=== PATIENT | female | born 1995 | race Two or more races ===

== ENCOUNTER 2024-08-02 09:09 | Outpatient (RCR) | payer MEDICAID, SELFPAY ==
--- NOTE | 2024-07-12 09:23 | XR_ITS ---
Examination: Biophysical profile, ultrasound Date and time of exam: July 12, 2024 0936 hours INDICATIONS: Maternal obesity Technique: Multiple transabdominal sonographic images of the pelvis abdomen obtained. Attention is directed to the breathing movement, gross body movement, amniotic fluid volume and tone. Findings: Amniotic fluid index 9.4 cm Total biophysical profile is 8 of 8. breathing movement is 2. Gross body movement is 2. tone is 2. Qualitative amniotic fluid volume is 2 Impression: Biophysical profile is 8 of 8.
[2024-07-12 10:16] VITALS: BP 124/81; PULSE 105; RESP 16; TEMP 36.8
--- NOTE | 2024-07-19 09:27 | XR_ITS ---
Examination: Biophysical profile, ultrasound Date and time of exam: July 19, 2024 0932 hrs. Indications: Maternal obesity Technique: Multiple transabdominal sonographic images of the pelvis abdomen obtained. Attention is directed to the breathing movement, gross body movement, amniotic fluid volume and tone. Findings: Amniotic fluid index 9.3 cm Total biophysical profile is 8 of 8. breathing movement is 2. Gross body movement is 2. tone is 2. Qualitative amniotic fluid volume is 2 Impression: Biophysical profile is 8 of 8.
[2024-07-19 10:08] VITALS: BP 111/76; PULSE 98; RESP 16; TEMP 36.7
--- NOTE | 2024-07-26 09:15 | XR_ITS ---
Examination: Biophysical profile, ultrasound Date and time of exam: July 26, 2024 0924 hours INDICATIONS: Maternal obesity Technique: Multiple transabdominal sonographic images of the pelvis abdomen obtained. Attention is directed to the breathing movement, gross body movement, amniotic fluid volume and tone. Findings: Amniotic fluid index 11.9 cm Total biophysical profile is 8 of 8. breathing movement is 2. Gross body movement is 2. tone is 2. Qualitative amniotic fluid volume is 2 Impression: Biophysical profile is 8 of 8.
[2024-07-26 10:06] VITALS: BP 111/64; PULSE 86; RESP 16; TEMP 36.8
--- NOTE | 2024-08-02 09:29 | XR_ITS ---
Examination: Biophysical profile, ultrasound Date and time of exam: August 02, 2024 1015 hours INDICATIONS: Maternal obesity Technique: Multiple transabdominal sonographic images of the pelvis abdomen obtained. Attention is directed to the breathing movement, gross body movement, amniotic fluid volume and tone. Findings: Amniotic fluid index 11.4 cm Total biophysical profile is 8 of 8. breathing movement is 2. Gross body movement is 2. tone is 2. Qualitative amniotic fluid volume is 2 Impression: Biophysical profile is 8 of 8.
[2024-08-02 10:48] VITALS: BP 138/92; PULSE 86; RESP 16; TEMP 36.7
== END 2024-08-02 23:59 | disposition home or self-care (01) ==
LOC: S4S1 09:09
PROVIDERS: PCP Family Medicine; Referring Provider Obstetrics & Gynecology; Visit Provider Obstetrics & Gynecology
DX: O99.213 Obesity complicating pregnancy, third trimester (principal); E66.9 Obesity, unspecified; Z3A.37 37 weeks gestation of pregnancy
CPT/HCPCS: 59025; 76819

== ENCOUNTER 2024-08-10 23:40 | Inpatient (IN) | payer MEDICAID, SELFPAY ==
[2024-08-10 23:52] VITALS: BP 134/82; RESP 100; RESP 18; TEMP 37.1
--- NOTE | 2024-08-10 23:55 | PD.LDHP ---
Documentation for date of: 08/10/24 OB Labor/Induct. HPI History of Present Illness : 4 Para: 2 History of Abortions: Spontaneous and Elective: 1 History of sections: Yes TRACIE: 08/21/24 Gestational Age (weeks): 38 Gestational Age (days): 3 History of present illness: 29-year-old -0-1-2 at 38 weeks 3 days, TRACIE 08/21/2024 presents with contractions. Patient has a history of 2 previous deliveries and was scheduled for repeat on 08/16/2024 She denies any leakage of fluid or vaginal bleeding. She reports good movements. Patient has a history of hypothyroidism currently on 100 mcg of levothyroxine She also has on and off gestational/chronic hypertension and she has 2 elevated blood pressures today Her BMI is also elevated to 57 Review of Systems Review of Systems Systems Reviewed: All systems reviewed, normal except as documented Past Medical History Surgical History SURGICAL: Positive Section Meds Home Medications and Allergies Home Medications ?Medication ?Instructions ?Recorded ?Confirmed ?Type vit no.95-ferrous 1 tab PO QDAY 08/10/24 08/10/24 History fumarate 28 mg-folic acid 800 mcg tablet () Allergies Allergy/AdvReac Type Severity Reaction Status Date / Time No Known Allergies Allergy Verified 08/10/24 23:52 OB Exam Constitutional Constitutional: no acute distress Routine HEENT Exam Head: Present normocephalic and atraumatic Eye: Present EOMI and PERRL ENT: Present mucous membranes moist Routine Neck Exam Neck: Present supple and trachea midline Routine Cardiovascular Exam Cardiovascular: Present RRR Routine Abdominal Exam Abdominal: Present soft and normoactive bowel sounds Detailed Labor and Delivery Exam Baseline heart rate: 140 monitor accelerations: 15x15 monitor decelerations: None Routine Extremities Exam Extremities: Present full ROM Routine Skin Exam Skin: Present intact, dry and warm Routine Neurological Exam Neurological: Present alert, oriented X3 and CN II-XII intact Routine Psychiatric Exam Psychiatric: Present normal affect and normal thought process OB Assessment & Plan Assessment and Plan (1) Previous delivery affecting : Status: Acute Assessment and plan: Admit to inpatient status for repeat low transverse IV access, CBC, type and screen, LR at 125, RPR, COVID-19 test GBS negative Ancef 3 g prior to surgery start Carmichael catheter to drainage SCDs for DVT prophylaxis Anesthesia to preop for spinal anesthesia Scheduled for surgery. (2) Hypothyroidism affecting : Status: Acute Assessment and plan: Continue home dose of levothyroxine (3) Gestational hypertension: Status: Acute Assessment and plan: Preeclampsia panel ordered (4) BMI 50.0-59.9, adult: Status: Acute Assessment and plan: Weight counseling, DVT prophylaxis postoperative
[2024-08-11] VITALS (25 sets, daily range): BP systolic 103–152; BP diastolic 63–93; PULSE 57–90; RESP 13–19; TEMP 36.4–37.1; O2SAT 97–100; BMI 57.5
--- NOTE | 2024-08-11 00:57 | XR_ITS ---
Examination: Biophysical profile, ultrasound Date and time of exam: August 11, 2024 0108 hours INDICATIONS: Pelvic contractions beginning 7:00 AM this morning labor evaluation Technique: Multiple transabdominal sonographic images of the pelvis abdomen obtained. Attention is directed to the breathing movement, gross body movement, amniotic fluid volume and tone. Findings: Amniotic fluid index 9.1 cm Total biophysical profile is 8 of 8. breathing movement is 2. Gross body movement is 2. tone is 2. Qualitative amniotic fluid volume is 2 Impression: Biophysical profile is 8 of 8.
--- NOTE | 2024-08-11 02:06 | PRELIM_ITS ---
Obstetric ultrasound (limited) with Doppler. August 11, 2024 0108 hoursClinical history: Contractio ns. Comparison: None.Findings:There is a gravid uterus with a live fetus in cephalic presentation. Fe cornelius cardiac activity is present at a heart rate of 131 beats per minute. Amniotic fluid is adequate ( OLAF = 9.1 cm). No abnormalities detected by Doppler.Biophysical Profile:Breathing : 2Tone : 2Amniotic fluid : 2Movement : 2BPP Score: 8/8Impression:Gravid uterus with a single live fetus in cephalic pre sentation.Normal biophysical profile as recorded by the lead neurodiagnostic technologist. Report Electro nically Signed By: Ady Saini 08/11/2024 2:06:27 AM [EST]
[2024-08-11] MEDS: ceFAZolin/D5W 2 GM IV 2 GM/100 ML BAG IV (02:47)
[2024-08-11] MEDS: METOCLOPRAMIDE INJ 5 MG/ML VIAL 2 ML 10 MG (02:47)
[2024-08-11] MEDS: FAMOTIDINE INJ 10 MG/ML VIAL 2 ML 20 MG (02:47)
[2024-08-11] MEDS: ceFAZolin INJ 1 GM VIAL (02:47)
[2024-08-11 03:17] LABS: Alanine Aminotransferase 15 U/L (10-49); Albumin, Serum 4.3 gm/dL (3.5-5.0); Albumin/Globulin Ratio 1.5 (1.2-2.2); Alkaline Phosphatase 199 U/L (46-116); Anion Gap 9 (7-16); Aspartate Amino Transferase 20 U/L (0-34); BUN/Creatinine Ratio 15 Ratio (12-20); Bilirubin,Total 0.6 mg/dL (0.3-1.2); Blood Urea Nitrogen 12 mg/dL (9-23); Carbon Dioxide 22.3 mMol/L (20.0-31.0); Chloride 106 mMol/L (98-107); Creatinine (Component) 0.8 mg/dL (0.6-1.3); Globulin 2.9 gm/dL (2.3-3.5); Glucose 102 mg/dL (74-106); LDH (Lactate Dehydrogenase) 137 U/L (120-246); Osmolality,Calculated 273 (275-295); Potassium 4.2 mMol/L (3.4-5.1); Sodium 137 mMol/L (136-145); Total Protein 7.2 gm/dL (5.7-8.2); Uric Acid 6.6 mg/dL (3.1-7.8); eGFR > 60 See Note
[2024-08-11 03:19] LABS: Prothrombin Time 10.7 Seconds (9.0-12.2)
[2024-08-11 03:22] LABS: Basophils % (Auto) 0 % (0-2.5); Eosinophils # (Auto) 0.1 Thou/mm3 (0.0-0.5); Eosinophils % (Auto) 1 % (0-10); Hematocrit 37.7 % (36.0-46.0); Hemoglobin 12.6 g/dL (12.0-16.0); Immature Granulocytes % (Auto) 0 % (0-0); Immature Granulocytes Auto 0.03 Thou/mm3 (0.00-0.00); Lymphocytes # (Auto) 3.1 Thou/mm3 (1.0-4.8); Lymphocytes % (Auto) 28 % (10-50); Mean Corpuscular HGB Conc 33.4 g/dl (31.0-37.0); Mean Corpuscular Hemoglobin 30.1 pg (25.0-35.0); Mean Corpuscular Volume 90 fL (80-100); Monocytes # (Auto) 0.6 Thou/mm3 (0.0-0.8); Monocytes % (Auto) 6 % (0-12); Neutrophils # (Auto) 7.1 Thou/mm3 (1.8-7.7); Neutrophils % (Auto) 65 % (37-80); Nucleated Red Blood Cell % 0 /100 WBC (0); Platelet Count 261 Thou/mm3 (140-440); RDW Standard Deviation 44.5 fL (36.4-46.3); Red Blood Count 4.18 Miln/mm3 (4.00-5.20); White Blood Count 10.9 Thou/mm3 (3.6-11.0)
[2024-08-11 04:14] LABS: Syphilis Nonreactive (Nonreactive)
[2024-08-11] MEDS: OXYTOCIN in NS 20 units 20 UNIT/1,000 ML BAG 125 UNIT IV ×2 (04:24→05:23)
[2024-08-11] MEDS: KETOROLAC INJ 30 MG/ML VIAL IVP ×2 (04:28→12:17)
[2024-08-11] MEDS: ACETAMINOPHEN 325 MG TABLET 650 MG PO (05:22)
[2024-08-11 06:51] LABS: Basophils # (Auto) 0.1 Thou/mm3 (0.0-0.2); Basophils % (Auto) 0 % (0-2.5); Eosinophils % (Auto) 0 % (0-10); Hematocrit 31.8 % (36.0-46.0); Hemoglobin 10.7 g/dL (12.0-16.0); Immature Granulocytes % (Auto) 1 % (0-0); Immature Granulocytes Auto 0.07 Thou/mm3 (0.00-0.00); Lymphocytes # (Auto) 2.2 Thou/mm3 (1.0-4.8); Lymphocytes % (Auto) 14 % (10-50); Mean Corpuscular HGB Conc 33.6 g/dl (31.0-37.0); Mean Corpuscular Hemoglobin 30.6 pg (25.0-35.0); Mean Corpuscular Volume 91 fL (80-100); Monocytes # (Auto) 0.6 Thou/mm3 (0.0-0.8); Monocytes % (Auto) 4 % (0-12); Neutrophils # (Auto) 12.2 Thou/mm3 (1.8-7.7); Neutrophils % (Auto) 81 % (37-80); Nucleated Red Blood Cell % 0 /100 WBC (0); Platelet Count 224 Thou/mm3 (140-440); RDW Standard Deviation 45.1 fL (36.4-46.3); White Blood Count 15.1 Thou/mm3 (3.6-11.0)
[2024-08-11] MEDS: DOCUSATE SOD 100 MG CAPSULE PO (09:27)
--- NOTE | 2024-08-11 09:35 | PC.LAC ---
Mom is experienced breast feeder, first baby nursed for 6 months, second baby nursed for 1 year. She states at this time she does not have any questions for concerns.
--- NOTE | 2024-08-11 10:19 | PC.NURSE ---
Dr. Prado called order received for Levothyroxine Sodium 125 mcg po ACBR DALLIN
[2024-08-11] MEDS: LEVOTHYROXINE SODIUM 125 MCG TABLET PO (10:45)
[2024-08-11] MEDS: IBUPROFEN TAB 400 MG TABLET 800 MG PO (15:16)
[2024-08-11] MEDS: HYDROcodone/APAP 5/325 TABLET 1 TAB PO (20:15)
[2024-08-12] MEDS: HYDROcodone/APAP 5/325 TABLET 2 TAB PO (03:12)
[2024-08-12 03:15] VITALS: BP 114/75; PULSE 76; RESP 18; TEMP 36.8; O2SAT 98
[2024-08-12] MEDS: LEVOTHYROXINE SODIUM 125 MCG TABLET PO (06:21)
[2024-08-12 08:49] VITALS: BP 113/70; PULSE 106; RESP 18; TEMP 37.7; O2SAT 98
[2024-08-12] MEDS: IBUPROFEN TAB 400 MG TABLET 800 MG PO ×2 (09:03→20:06)
[2024-08-12] MEDS: DOCUSATE SOD 100 MG CAPSULE PO (09:03)
[2024-08-12] MEDS: ENOXAPARIN SOD INJ 40 MG/0.4 ML SYRINGE SC (09:03)
[2024-08-12 11:47] VITALS: BP 125/71; PULSE 78; RESP 16; TEMP 36.6
[2024-08-12] MEDS: CALCIUM CARBONATE 600 MG TABLET PO (13:18)
--- NOTE | 2024-08-12 17:55 | PD.LDPPPRG ---
Subjective Subjective Interval history: POD #1 s/p repeat LTCS patient with gestational hypertension and she has some heartburn passing flatus , ambulating without dizziness and no headache or blurry vision and has stable vital signs minimal vaginal bleeding Exam Vital Signs Temp Pulse Resp BP Pulse Ox O2 Del Method 97.8 F 78 16 125/71 98 Room Air 08/12/24 11:47 08/12/24 11:47 08/12/24 11:47 08/12/24 11:47 08/12/24 08:49 08/12/24 11:47 Constitutional Constitutional: no acute distress Routine HEENT Exam Head: Present normocephalic and atraumatic Eye: Present EOMI and PERRL ENT: Present mucous membranes moist Routine Neck Exam Neck: Present supple and trachea midline Routine Respiratory Exam Respiratory: Present chest non-tender, lungs clear, normal breath sounds and no resp distress Routine Cardiovascular Exam Cardiovascular: Present RRR Routine Abdominal Exam Abdominal: Present soft and normoactive bowel sounds Comments: incision C,D and intact with appropriate tenderness BS present patient ambulating and feels comfortable has good pain control No fundal tenderness minimal vaginal bleeding and no calf tenderness Routine Extremities Exam Extremities: Present full ROM Routine Skin Exam Skin: Present intact, dry and warm Routine Neurological Exam Neurological: Present alert, oriented X3 and CN II-XII intact Routine Psychiatric Exam Psychiatric: Present normal affect and normal thought process Objective Labs 08/11/24 06:30 08/11/24 01:59 Labs: appropriate Impressions Impression: Routine post op exam s/p repeat LTCS / prior 2 c sections /Routine care / patient instructed on ambulation as she has a high BMI no chest pain or SOB . She is doing well / Routine care Assessment & Plan Problem List (1) Previous delivery affecting : Status: Acute (2) Hypothyroidism affecting : Status: Acute (3) Gestational hypertension: Status: Acute (4) BMI 50.0-59.9, adult: Status: Acute Time Spent With Patient Time: Total time spent is greater than 50% in coordination of care (as documented) at patient's floor/unit and/or counseling patient:
[2024-08-12] MEDS: HYDROcodone/APAP 5/325 TABLET 1 TAB PO (18:25)
[2024-08-12 19:43] VITALS: BP 117/79; PULSE 91; RESP 30; TEMP 36.7; O2SAT 97
[2024-08-13 05:16] VITALS: BP 104/73; PULSE 80; RESP 20; TEMP 36.6; O2SAT 97
[2024-08-13] MEDS: HYDROcodone/APAP 5/325 TABLET 1 TAB PO (05:29)
[2024-08-13] MEDS: LEVOTHYROXINE SODIUM 125 MCG TABLET PO (05:30)
[2024-08-13 07:18] VITALS: BP 112/74; PULSE 84; RESP 16; TEMP 37.1
[2024-08-13] MEDS: ENOXAPARIN SOD INJ 40 MG/0.4 ML SYRINGE SC (08:16)
[2024-08-13] MEDS: DOCUSATE SOD 100 MG CAPSULE PO (08:16)
--- NOTE | 2024-08-13 09:28 | PD.LDPPPRG ---
Subjective Subjective Interval history: Delivery type: Patient doing well this morning. No acute complaints. Ambulating, tolerating p.o. and voiding without difficulty. HTN/Pre-Eclampsia screen: No chest pain, shortness of breath, headache, visual changes, epigastric or right upper quadrant pain. Breast-feeding, lochia diminishing. Bowel: Flatus+/ BM+ Exam Vital Signs Temp Pulse Resp BP Pulse Ox O2 Del Method 98.8 F 84 16 112/74 97 Room Air 08/13/24 07:18 08/13/24 07:18 08/13/24 07:18 08/13/24 07:18 08/13/24 05:16 08/13/24 07:18 Constitutional Constitutional: no acute distress Routine HEENT Exam Head: Present normocephalic and atraumatic Eye: Present EOMI and PERRL ENT: Present mucous membranes moist Routine Neck Exam Neck: Present supple and trachea midline Routine Respiratory Exam Respiratory: Present chest non-tender, lungs clear, normal breath sounds and no resp distress Routine Cardiovascular Exam Cardiovascular: Present RRR Routine Abdominal Exam Abdominal: Present soft and normoactive bowel sounds Routine Extremities Exam Extremities: Present full ROM Routine Skin Exam Skin: Present intact, dry and warm Routine Neurological Exam Neurological: Present alert, oriented X3 and CN II-XII intact Routine Psychiatric Exam Psychiatric: Present normal affect and normal thought process Objective Labs 08/11/24 06:30 08/11/24 01:59 Assessment & Plan Problem List (1) Previous delivery affecting : Status: Acute Assessment and plan: PPD/POD#2 1. Continue routine care 2. Transition to PO meds. 3. Encourage to ambulate/ breast-feed 4. Anticipate discharge home today. (2) Hypothyroidism affecting : Status: Acute (3) Gestational hypertension: Status: Acute (4) BMI 50.0-59.9, adult: Status: Acute Time Spent With Patient Time: Total time spent is greater than 50% in coordination of care (as documented) at patient's floor/unit and/or counseling patient:
--- NOTE | 2024-08-13 09:29 | ESDS_ITS ---
DS: Providers Provider Date of admission: 08/11/24 01:33 Primary care physician: Physician No Primary/Family Admitting Provider: Neftali Prado MD Attending Provider on Admission: Neftali Prado MD Consults: 08/11/24 01:48 Referral Routine Comment: Attending Provider on DC: Neftali Prado MD Discharging Provider: Neftali Prado MD DS: Diagnosis Discharge Diagnosis (1) Previous delivery affecting : Status: Acute (2) Hypothyroidism affecting : Status: Acute Problem List Completed Was Problem List Reviewed/Reconciled?: Yes Summary/Hosp Course Brief History: 29-year-old -0-1-2 at 38 weeks 3 days, TRACIE 08/21/2024 presents with contractions. Patient has a history of 2 previous deliveries and was scheduled for repeat on 08/16/2024 She denies any leakage of fluid or vaginal bleeding. She reports good movements. Patient has a history of hypothyroidism currently on 100 mcg of levothyroxine She also has on and off gestational/chronic hypertension and she has 2 elevated blood pressures today Her BMI is also elevated to 57 Peripartum Data Procedures: Procedures Operation Date: 08/11/24 03:30 Actual Procedure Side Surgeon p in OB Neftali Prado MD Time Spent with Patient Time attestation: Total time spent providing and/or coordinating discharge services: Exam Vital Signs Temp Pulse Resp BP Pulse Ox O2 Del Method 98.8 F 84 16 112/74 97 Room Air 08/13/24 07:18 08/13/24 07:18 08/13/24 07:18 08/13/24 07:18 08/13/24 05:16 08/13/24 07:18 Discharge Plan Plan Patient Disposition: HOME (Self Care) Patient condition on transfer: Stable Prescriptions/Referrals Prescriptions/Med Rec: New hydrocodone-acetaminophen 5-325 mg Tablet 1 tab PO Q6HR MDD 4 PRN (Reason: Patient rated pain 9 to 10) 5 Days Qty: 20 0RF docusate sodium 100 mg Capsule 100 mg PO QDAY 30 Days Qty: 30 0RF ibuprofen 400 mg Tablet 800 mg PO Q8HR PRN (Reason: Pain Scale 4-6 (Moderate) 10 Days Qty: 30 0RF Continued levothyroxine 100 mcg capsule 100 mcg PO QDAY Qty: 30 0RF PNV cmb#95-ferrous fumarate-FA [] 28 mg iron- 800 mcg tablet 1 tab PO QDAY Referrals: Neftali Prado MD [Physician] - No Primary/Family,Physician [Primary Care Provider] - Patient/Caregiver Discharge Instructions Meds to Beds: Yes Discharge Activity: activity as tolerated Education Materials: Storing Expressed Milk, : Caring for Yourself, C Section Dc Print Language: Hebrew Activity Restrictions/Additional Instructions: office visit in one week, continue your vitamin and levothyroxine Stand Alone Forms: Martha Award Info., Patient Portal Info Letter, DC from Surgery Discharge Order Discharge Orders: Discharge (Routine); Ordered 08/13/24 Ordered By: Neftali Prado Planned Discharge Date 08/13/24
--- NOTE | 2024-08-21 05:14 | ESOP_ITS ---
Operative Note - ORDNANCE TECHNICIAN Procedure Date of procedure: 08/11/24 Procedure Performed: Repeat low-transverse section Indication: Previous section in active labor Elevated BMI 50 Chronic hypertension Anesthesia type: Spinal Procedure description: Informed consent was obtained and the patient was taken to the operating room. Identity was confirmed by double identifiers and she was placed on the operating table. Spinal anesthesia was administered and she was positioned in the supine position. The abdomen and perineum were prepped in the usual sterile fashion and a Carmichael catheter was placed to continuous drainage. Sterile drapes were applied. The incision site was tested for adequacy of anesthesia. A Pfannenstiel skin incision was made with a scalpel and carried to the subcutaneous fat up to the rectus fascia. The rectus fascia was incised on either side of the midline and the incisions were extended bilaterally. The fascia was gently dissected off the ventral surface of the rectus muscle both superiorly and inferiorly. The rectus bellies were gently in the midline and the peritoneum was identified and entered bluntly using the surgeon's finger. The peritoneal opening was now stretched to create an adequate opening for access to the uterus. Derek O-ring retractor was placed for adequate visualization. The anterior surface of the uterus was palpated. The bladder reflection was identified and a Teetee Dyer low transverse uterine incision was made in the lower uterine segment taking care to avoid the bladder. Uterine entry was accomplished bluntly and the opening was stretched to create adequate room. The amniotic membranes were now ruptured and clear amniotic fluid was released. The fetus was noted to be in the vertex position. The head was gently elevated out of the maternal pelvis and single loop of nuchal cord was found around the neck. The cord was released and the rest of the shoulders and body were delivered by gentle fundal pressure. Umbilical cord was doubly clamped, divided and the infant was handed over to the waiting team. Cord gas samples were obtained. The placenta was delivered by gentle traction on the umbilical cord. The interior of the uterus was now thoroughly cleaned of all blood and debris and membranes. The hysterotomy angles were grasped by a pair of Allis clamps and the hysterotomy was closed using 1 Monocryl suture in 2 layers. The first layer was used to approximate the muscle in a running locked fashion, the second layer was used to approximate the thickness of the myometrium and uterine serosa in an imbricated manner. Once the repair was completed the hysterotomy was inspected and noted to be adequately hemostatic. The hysterotomy was once again inspected and hemostasis was noted to be satisfactory. The Derek retractor was now removed. The peritoneal edges were re approximated. The rectus muscles were re approximated. The rectus fascia was now repaired using 0 Vicryl suture in a running fashion. The subcutaneous layer was now copiously irrigated using warm normal saline. All bleeding points were cauterized using the Bovie. The subcutaneous fat was closed using 3-0 Vicryl. The skin was closed using 4-0 Monocryl in a subcuticular fashion. The skin was cleaned and a sterile dressing was applied. The patient was now undraped, the abdomen and back were thoroughly cleaned and she was transferred to the recovery room in a stable and awake condition. The patient tolerated the entire procedure well. No complications were encountered. All instrument, sponge and lap counts were correct x2. The entire procedure was additionally challenging due to patient's BMI Estimated blood loss (ml): 750 Surgical staff Operation Date: 08/11/24 03:30 Case Staff ASSISTANT BOOKKEEPER: Henry Thao RN First Assistant: Emerita Ferguson Diagnosis Discharge Diagnosis (1) BMI 50.0-59.9, adult: Status: Acute (2) Previous delivery affecting : Status: Acute Problem List Completed Was Problem List Reviewed/Reconciled?: Yes
--- NOTE | 2024-08-21 05:17 | PD.LDDELS ---
Data (Peters) Data Hx Section: Yes Para: 3 Delivery Data (Peters) Labor Data ROM Date: 08/11/24 ROM Time: 03:42 Rupture Type: AROM Amniotic Fluid: Clear Delivery Data Labor Onset Stage 1 Date: 08/11/24 Labor Onset Stage 1 Time: 03:43 Labor Onset Stage 2 Date: 08/11/24 Labor Onset Stage 2 Time: 03:43 Delivery Date: 08/11/24 Delivery Time: 03:43 Placenta Delivery Date: 08/11/24 Placenta Delivery Time: 03:44 Delivered by: Neftali Prado Delivery nurse: Tom Villarreal Other staff at delivery: Nursery Nurse Other staff at delivery: Leila Medina Delivery Method Delivery: Delivery Type: Repeat Presentation: Vertex Anesthesia Type Primary Anesthesia: Spinal Placenta Placenta Delivery: Manual Industry Data (Peters) Data Infant Gender: Male Weight Grams: 3315 1 Minute Total: 9 5 Minute Total: 9
== END 2024-08-13 12:26 | disposition home or self-care (01) | DRG 540 ==
LOC: S4SX 08-11 02:03 → S4NX 08-11 03:58
PROVIDERS: Admitting Provider Obstetrics & Gynecology; Visit Provider Obstetrics & Gynecology
PROC: 10D00Z1 Extraction of Products of Conception, Low, Open Approach (ICD-10-PCS; CPT 59514; principal; 2024-08-11 03:15)
DX: O34.211 Maternal care for low transverse scar from previous cesarean delivery (principal); Z37.0 Single live birth; Z3A.38 38 weeks gestation of pregnancy; O13.4 Gestational [pregnancy-induced] hypertension without significant proteinuria, complicating childbirth; O99.284 Endocrine, nutritional and metabolic diseases complicating childbirth; E03.9 Hypothyroidism, unspecified; O69.81X0 Labor and delivery complicated by cord around neck, without compression, not applicable or unspecified; Z79.890 Hormone replacement therapy
CPT/HCPCS: 36415; 59025; 59899; 76819; 80053; 83615; 84550; 85025; 85610; 86780; 86850; 86900; 86901; 86923; A4649; J0689; J0690; J1650; J1885; J2274; J2371; J2590; J2765; J3010; J3490; A9270; J2270

== ENCOUNTER → 2024-10-17 | Outpatient (BNVA) | payer MEDICAID, SELFPAY | END | disposition home or self-care (01) | PROVIDERS: PCP Nurse Practitioner Family; Referring Provider Nurse Practitioner Family; Visit Provider Nurse Practitioner Family | DX: Z30.42 Encounter for surveillance of injectable contraceptive (principal) | CPT/HCPCS: 81025; 96372; 99214; J1050 ==

== ENCOUNTER → 2024-11-08 | Outpatient (BNVA) | payer MEDICAID, SELFPAY | END | disposition home or self-care (01) | PROVIDERS: PCP Nurse Practitioner Family; Referring Provider Nurse Practitioner Family; Visit Provider Nurse Practitioner Family | DX: Z00.01 Encounter for general adult medical examination with abnormal findings (principal); Z71.3 Dietary counseling and surveillance; E66.01 Morbid (severe) obesity due to excess calories; Z68.43 Body mass index [BMI] 50.0-59.9, adult; Z11.3 Encounter for screening for infections with a predominantly sexual mode of transmission; K02.9 Dental caries, unspecified; Z71.85 Encounter for immunization safety counseling; Z01.83 Encounter for blood typing; Z13.220 Encounter for screening for lipoid disorders; Z13.1 Encounter for screening for diabetes mellitus; E03.9 Hypothyroidism, unspecified | CPT/HCPCS: 99215 ==

== ENCOUNTER → 2024-11-17 | Outpatient (BNVA) | payer MEDICAID, SELFPAY | END | disposition home or self-care (01) | PROVIDERS: PCP Nurse Practitioner Family; Referring Provider Nurse Practitioner Family; Visit Provider Nurse Practitioner Family | DX: N39.0 Urinary tract infection, site not specified (principal); Z71.2 Person consulting for explanation of examination or test findings | CPT/HCPCS: 99212; G0463 ==

== ENCOUNTER → 2024-11-22 | Outpatient (BNVA) | payer MEDICAID, SELFPAY | END | disposition home or self-care (01) | PROVIDERS: PCP Nurse Practitioner Family; Referring Provider Nurse Practitioner Family; Visit Provider Nurse Practitioner Family | DX: Z71.2 Person consulting for explanation of examination or test findings (principal); E03.9 Hypothyroidism, unspecified; E55.9 Vitamin D deficiency, unspecified; R94.5 Abnormal results of liver function studies | CPT/HCPCS: 99212; G0463 ==

== ENCOUNTER → 2024-12-06 | Outpatient (BNVA) | payer MEDICAID, SELFPAY | END | disposition home or self-care (01) | PROVIDERS: PCP Nurse Practitioner Family; Referring Provider Nurse Practitioner Family; Visit Provider Nurse Practitioner Family | DX: Z71.3 Dietary counseling and surveillance (principal); E66.01 Morbid (severe) obesity due to excess calories; Z68.43 Body mass index [BMI] 50.0-59.9, adult | CPT/HCPCS: 99213 ==

== ENCOUNTER → 2025-01-03 | Outpatient (BNVA) | payer MEDICAID, SELFPAY | END | disposition home or self-care (01) | PROVIDERS: PCP Nurse Practitioner Family; Referring Provider Nurse Practitioner Family; Visit Provider Nurse Practitioner Family | DX: Z71.3 Dietary counseling and surveillance (principal); Z30.42 Encounter for surveillance of injectable contraceptive; E66.01 Morbid (severe) obesity due to excess calories; Z68.43 Body mass index [BMI] 50.0-59.9, adult | CPT/HCPCS: 96372; 99214 ==

== ENCOUNTER → 2025-02-01 | Outpatient (BNVA) | payer MEDICAID, SELFPAY | END | disposition home or self-care (01) | PROVIDERS: PCP Nurse Practitioner Family; Referring Provider Nurse Practitioner Family; Visit Provider Nurse Practitioner Family | DX: M54.50 Low back pain, unspecified (principal); Z71.3 Dietary counseling and surveillance; Z68.43 Body mass index [BMI] 50.0-59.9, adult; E66.01 Morbid (severe) obesity due to excess calories | CPT/HCPCS: 96372; 99213; J1885 ==

== ENCOUNTER 2025-04-24 18:10 | Emergency (ER) | payer MEDICAID, SELFPAY ==
[2025-04-24 18:19] VITALS: BP 122/85; PULSE 89; RESP 18; TEMP 37.1; O2SAT 99; BMI 48.4
--- NOTE | 2025-04-24 18:28 | XR_ITS ---
Examination: CT chest, without intravenous contrast. CT abdomen, without intravenous contrast. CT pelvis, without intravenous contrast. 2-D sagittal and coronal reconstructions. 3-D reconstructions. Date and time of exam:April 24, 2025, 192 hrs. Indications: Right-sided chest and abdominal pain today CTDI vol (mgy) 16.3 DLP (MGycm)1219 Technique: Multiple CT images, 3.0 mm slice thickness, obtained chest, abdomen, pelvis, with the high-resolution 64 slice scanner.. Sagittal and coronal 2-D reconstructions are obtained. 3-D reconstructions Low dose protocols were performed. One or more of the following dose reduction techniques were used; automated exposure control, adjustment of the mA and/or KV according to patient size, use of iterative reconstruction technique. Findings: No thoracic aortic aneurysm dilatation No paratracheal tracheobronchial or bronchopulmonary adenopathy No pneumonia or pulmonary edema or pleural disease No visualized liver or splenic lesion Absent gallbladder No pancreatic or adrenal mass No renal or ureteral calculi, no hydronephrosis Normal appendix No bowel obstruction or diverticulitis No pelvic mass No bladder mass or bladder calculi Osseous structures intact Impression: No mediastinal lymphadenopathy No pneumonia, pulmonary edema or pleural disease Absent gallbladder, no extrahepatic biliary tract dilatation. No renal or ureteral calculi No CT findings of appendicitis bowel obstruction or diverticulitis
--- NOTE | 2025-04-24 18:28 | EKG_ITS ---
[facility] Test Date: 2025-04-24 Pat Name: WENDY SIU Department: Room: - Gender: Female Occasional Babysitter: : 1995 Requested By: Areli Rahman Order Number: [id number] Reading MD: Areli Rahman Measurements Intervals [place] Rate: 78 P: 27 GA: 150 QRS: -4 QRSD: 96 T: 9 QT: 366 QTc: 419 Interpretive Statements SINUS RHYTHM MODERATE VOLTAGE CRITERIA FOR LVH, CONSIDER NORMAL VARIANT [MEETS CRITERIA IN ONE OF: R(aVL), S(V1), R(V5), R(V5/V6)+S(V1)] No previous ECG available for comparison /store/S0/[id number].pdf
[2025-04-24 18:49] LABS: Collection Type, Urine Clean Catch
[2025-04-24 19:04] LABS: Basophils # (Auto) 0.0 Thou/mm3 (0.0-0.2); Basophils % (Auto) 0 % (0-2.5); Eosinophils # (Auto) 0.2 Thou/mm3 (0.0-0.5); Eosinophils % (Auto) 2 % (0-10); Hematocrit 38.5 % (36.0-46.0); Hemoglobin 12.9 g/dL (12.0-16.0); Immature Granulocytes Auto 0.03 Thou/mm3 (0.00-0.00); Lymphocytes # (Auto) 3.0 Thou/mm3 (1.0-4.8); Lymphocytes % (Auto) 30 % (10-50); Mean Corpuscular HGB Conc 33.5 g/dl (31.0-37.0); Mean Corpuscular Hemoglobin 31.6 pg (25.0-35.0); Mean Corpuscular Volume 94 fL (80-100); Monocytes # (Auto) 0.6 Thou/mm3 (0.0-0.8); Monocytes % (Auto) 6 % (0-12); Neutrophils # (Auto) 6.2 Thou/mm3 (1.8-7.7); Neutrophils % (Auto) 61 % (37-80); Nucleated Red Blood Cell # 0.00 Thou/mm3 (0.00-0.00); Nucleated Red Blood Cell % 0 /100 WBC (0); Platelet Count 271 Thou/mm3 (140-440); RDW Standard Deviation 43.0 fL (36.4-46.3); Red Blood Count 4.08 Miln/mm3 (4.00-5.20); White Blood Count 10.1 Thou/mm3 (3.6-11.0)
[2025-04-24 19:06] LABS: Bilirubin,Urine Negative (Negative); Blood,Urine Negative (Negative); Clarity,Urine Clear (Clear/Hazy); Color,Urine Lt-Yellow (Lt Yel-Yel); Glucose, Urine Negative (Negative); Ketones,Urine Negative (Negative); Leukocyte Esterase,Urine Negative (Negative); Nitrite,Urine Negative (Negative); PH,Urine 6.5 (5.0-7.0); Protein,Urine Negative (Neg - Trace); RBC,Urine 2 /hpf (0-3); Specific Gravity,Urine 1.018 (1.001-1.035); Squamous Epithelial Cell,Urine 3 /hpf (0-5); Urobilinogen,Urine Negative mg/dL (0.0-1.0); WBC,Urine < 1 /hpf (0-5)
[2025-04-24 19:26] LABS: Alanine Aminotransferase 12 U/L (10-49); Albumin, Serum 4.7 gm/dL (3.5-5.0); Albumin/Globulin Ratio 1.6 (1.2-2.2); Alkaline Phosphatase 76 U/L (46-116); Anion Gap 11 (7-16); Aspartate Amino Transferase 22 U/L (0-34); BUN/Creatinine Ratio 14 Ratio (12-20); Bilirubin,Total 1.1 mg/dL (0.3-1.2); Blood Urea Nitrogen 13 mg/dL (9-23); Calcium 9.9 mg/dL (8.3-10.6); Calcium (Corrected) 9.9 mg/dL (8.5-10.1); Carbon Dioxide 24.6 mMol/L (20.0-31.0); Chloride 107 mMol/L (98-107); Creatinine (Component) 0.9 mg/dL (0.6-1.3); Estimated Creatinine Clearance 99.3 mL/min (>60); Globulin 2.9 gm/dL (2.3-3.5); Glucose 92 mg/dL (74-106); Lipase 39 U/L (12-53); Osmolality,Calculated 285 (275-295); Potassium 4.2 mMol/L (3.4-5.1); Sodium 143 mMol/L (136-145); Total Protein 7.6 gm/dL (5.7-8.2); Troponin I < 0.002 ng/mL (0.0-0.045); eGFR > 60 See Note
[2025-04-24 19:29] LABS: HCG Qualitative,Urine Negative
--- NOTE | 2025-04-24 21:54 | PD.EDABDPN ---
ED Abdominal Pain RME/HPI General Chief Complaint: Chest Pain Stated complaint: R) LOWER CHEST PAIN RADIATING TO BACK X 1 WK; SOB Time seen by provider: 04/24/25 18:15 Arrival date/time: 04/24/25 18:10 This is a case of 30-year-old female with history of cholecystectomy came in in the emergency room due to bilateral upper abdominal pain epigastric pain radiating to the mid chest on and off for 1 week with mild shortness of breath and mild headache denies any cough nasal congestion denies any nausea vomiting denies any constipation diarrhea denies any blood in stool persistence of the symptoms this patient decided to sought consult here in the emergency Limitations: no limitations Related Data Previous Rx's ?Medication ?Instructions ?Recorded condoms - male #10 ea 10/17/24 meloxicam 15 mg tablet 15 mg PO QDAY #30 tabs 11/08/24 levothyroxine 100 mcg capsule 100 mcg PO QDAY #30 caps 11/22/24 diclofenac sodium 1 % topical gel 2 g topical QID #100 grams 02/01/25 (Voltaren Arthritis Pain) famotidine 20 mg tablet 20 mg PO BID #60 tabs 04/24/25 omeprazole 20 mg capsule,delayed 20 mg PO QDAY #30 caps 04/24/25 release ondansetron 4 mg disintegrating 4 mg PO Q8H PRN nausea and 04/24/25 tablet vomiting #14 tabs Allergies Allergy/AdvReac Type Severity Reaction Status Date / Time No Known Allergies Allergy Verified 04/24/25 18:13 Review of Systems Review of Systems Systems Reviewed: All systems reviewed, normal except as documented Constitutional Constitutional: Reports system reviewed and no additional complaints, except as documented and Reports as per HPI Cardiovascular Cardiovascular: Reports system reviewed and no additional complaints, except as documented and Reports as per HPI Respiratory Respiratory: Reports system reviewed and no additional complaints, except as documented and Reports as per HPI Gastrointestinal Gastrointestinal: Reports system reviewed and no additional complaints, except as documented and Reports as per HPI Genitourinary Genitourinary: Reports system reviewed and no additional complaints, except as documented and Reports as per HPI Musculoskeletal Musculoskeletal: Reports system reviewed and no additional complaints, except as documented and Reports as per HPI Neurologic Neurologic: Reports system reviewed and no additional complaints, except as documented and Reports as per HPI Past Medical History Past Medical History NEUROLOGIC: Negative Neurological Disorders or Seizures CARDIAC: Negative Cardiac Disorders or Congestive Heart Failure RESPIRATORY: Negative Chronic Obstructive Pulmonary Disease (COPD) GASTROINTESTINAL: Positive Gastrointestinal Disorders and Obesity GENITOURINARY: Negative Genitourinary Disorders or Renal Disease MUSCULOSKELETAL: Negative Musculoskeletal Disorders ENDOCRINE: Positive Endocrine Disorders and Hypoglycemia; Negative Diabetes Mellitus Type 1 or Diabetes Mellitus Type 2 HEMATOLOGIC: Positive Blood Disorders and Anemia OTHER HISTORY: Negative Autoimmune Disease, Blood Transfusions, Blood Transfusion Reaction or Anesthesia Reactions Family History FAMILY HISTORY: Positive Family Cardiac Disorders (GRANDMOTHER HTN); Negative Family Psychiatric Problems, Family Respiratory Disorders, Family Gastrointestinal Problems, Family Cancer, Family Surgery or Family Anesthesia Reaction Surgical History SURGICAL: Positive Section Social History SMOKING STATUS: Never smoker SECOND HAND EXPOSURE: No ED Exam General Limitations: Present no limitations General appearance: Present alert, in no apparent distress and other (Patient is awake alert oriented not in distress nontoxic looking well-hydrated well-nourished) Head Head exam: Present atraumatic, normocephalic and normal inspection Eye Eye exam: Present normal appearance, PERRL and EOMI ENT ENT exam: Present normal exam, normal oropharynx and mucous membranes moist Neck Neck exam: Present normal inspection, full ROM and trachea midline; Absent tenderness, meningismus, lymphadenopathy or thyromegaly Chest Chest inspection: Present normal inspection and symmetric chest wall rise; Absent tenderness Respiratory Respiratory exam: Present normal lung sounds bilaterally; Absent respiratory distress, wheezes, stridor, accessory muscle use or prolonged expiratory phase Cardiovascular Cardiovascular exam: Present regular rate, normal rhythm and normal heart sounds Abdominal Exam Abdominal exam: Present soft, tenderness (Mild tenderness on epigastric area no CVA tenderness) and normal bowel sounds; Absent distention, guarding, rebound, rigidity, diminished bowel sounds, hyperactive bowel sounds, hypoactive bowel sounds, organomegaly, trauma, psoas sign, obturator sign, Luevano's sign, Rovsing's sign or tenderness at McBurney's Point Extremities Exam Extremities exam: Present normal inspection and full ROM Back Exam Back exam: Present normal inspection and full ROM Neurological Exam Neurological exam: Present alert, oriented X3, CN II-XII intact, normal gait and reflexes normal; Absent motor sensory deficit Psychiatric Psychiatric exam: Present normal affect and normal mood Skin Skin exam: Present warm, dry, intact, normal color and other (Select skin turgor) Course Quality Measures none Orders Category Date Time Status EKG (ED ONLY) *Do not use* NOW Care 04/24/25 18:[address] chest abdomen pelvis wo Stat Exams 04/24/25 18:28 Completed EKG (ED Only) Stat Exams 04/24/25 18:28 Draft CBC Stat Lab 04/24/25 18:55 Completed Comprehensive Metabolic Panel Stat Lab 04/24/25 18:55 Completed HCG Qualitative,Urine Stat Lab 04/24/25 18:44 Completed Lipase Stat Lab 04/24/25 18:55 Completed Troponin I Stat Lab 04/24/25 18:55 Completed Urinalysis Stat Lab 04/24/25 18:44 Completed Famotidine [Pepcid] Med 04/24/25 21:50 Once 40 mg PO X1 ONE HYDROcodone*/APAP 5/325 [[place] 5/325] Med 04/24/25 21:50 Once 1 tab PO X1 ONE Lidocaine 2% Viscous [Xylocaine 2% Viscous] Med 04/24/25 21:50 Once 15 ml PO X1 ONE Ondansetron Odt [Zofran Odt] Med 04/24/25 21:50 Once 4 mg PO X1 ONE mg Hyd/Al Hyd/Caprice Susp [Maalox Susp] Med 04/24/25 21:50 Once 30 ml PO X1 ONE Vital Signs Vital signs: Vital Signs Temperature 98.8 F 04/24/25 18:19 Pulse Rate 89 04/24/25 18:19 Respiratory Rate 18 04/24/25 18:19 Blood Pressure 122/85 H 04/24/25 18:19 Pulse Oximetry (%) 99 04/24/25 18:19 Oxygen Delivery Method Room Air 04/24/25 18:19 Oxygen saturation is 99% in room air Abdominal Pain MDM MDM Narrative MDM Narrative:: This is a case of 30-year-old female with history of cholecystectomy came in in the emergency room due to bilateral upper abdominal pain epigastric pain radiating to the mid chest on and off for 1 week with mild shortness of breath and mild headache denies any cough nasal congestion denies any nausea vomiting denies any constipation diarrhea denies any blood in stool persistence of the symptoms this patient decided to sought consult here in the emergency physical examination patient is awake alert oriented not in distress nontoxic looking well-hydrated well-nourished vital signs stable BP stable nontachycardic nontachypneic nonhypoxic oxygen saturation is normal lungs sound is clear no crackles no rales no retraction no stridor heart normal rate regular rhythm no murmur no edema abdominal exam is benign nonsurgical no guarding no rebound mild tenderness in the epigastric area negative psoas negative straight or negative Rovsing's negative Cortland's negative Luevano sign negative CVA tenderness the rest of the physical examination neurological exam is normal and unremarkable blood test showed no leukocytosis no anemia kidney and liver function is normal lipase is normal no electrolyte imbalance troponin is negative EKG showed [address] chest abdomen pelvis is normal at this point patient symptoms possible due to gastritis patient was given GI cocktail which patient condition markedly improved she was advised to follow-up with PCP to be referred to peripatologist for chest pain for possible echocardiogram stress test and Holter monitor and to be referred to engineering manager for gastritis modified diet is advised she was prescribed with Pepcid and omeprazole patient will be discharged home stable condition worsening symptoms or any emergent concern return precaution at the ER is advised Patient data External records reviewed:: [facility] previous records Clinical information provided by:: patient Social determinants that could affect healthcare access:: none Patient has the following chronic illnesses:: None How is presenting disease/condition affected by chronic disease/condition?: no chronic disease Evaluation data The following diagnostics were reviewed and interpreted by me:: lab results, radiology exam(s) and EKG tracing(s) Lab and/or radiology exams considered but not ordered:: Reviewed Interpretation Summary: Reviewed Medications / Prescriptions Medications or Prescriptions considered but not ordered:: Given Medication administrations:: Medication Administration History Hydrocodone Bitart/Acetaminophen (Hydrocodone/Apap 5/325 Tablet) 1 tab PO X1 ONE Stop: 04/24/25 21:51 Al Hydrox/Mg Hydrox/Simethicone (Mg Hyd/Al Hyd/Caprice (Maalox Reg) Susp 30 Ml Udc) 30 ml PO X1 ONE Stop: 04/24/25 21:51 Famotidine (Famotidine 20 Mg Tablet) 40 mg PO X1 ONE Stop: 04/24/25 21:51 Lidocaine HCl (Lidocaine Viscous 2% 15 Ml Udc) 15 ml PO X1 ONE Stop: 04/24/25 21:51 Ondansetron HCl (Ondansetron Odt 4 Mg Tabrap) 4 mg PO X1 ONE; Protocol Stop: 04/24/25 21:51 Given Consultations Consultation(s) initiated? (list below): No Diagnosis Differential diagnosis abdominal pain: abdominal pain, acute appendicitis, calculus of kidney, diverticulitis, gastroenteritis, pancreatitis and other (Gastritis) Most likely diagnosis given after review of the tests above:: Gastritis chest pain of unknown etiology Admission Indicated Admission indicated?: not indicated Explain why admission is indicated or not indicated:: Not indicated Admission Request Was there a request for admission?: No Admission Attestation Admission request attestation: Not indicated Disposition Plan Disposition Plan: Discharge Discharge Attestation Discharge Attestation: The patient and all family members were given an opportunity to ask questions and understood the discharge instructions. Discharge instructions specifically effects, indications for sooner follow up or return to the emergency department, and the expected course of current diagnosis. Patient condition: Stable Discharge Plan Plan Patient Disposition: HOME (Self Care) Patient condition on transfer: Stable Prescriptions/Referrals Prescriptions/Med Rec: New famotidine 20 mg tablet 20 mg PO BID Qty: 60 0RF omeprazole 20 mg capsule,delayed release(DR/EC) 20 mg PO QDAY Qty: 30 0RF ondansetron 4 mg tablet,disintegrating 4 mg PO Q8H PRN (Reason: nausea and vomiting) Qty: 14 0RF No Action meloxicam 15 mg tablet 15 mg PO QDAY Qty: 30 0RF diclofenac sodium [Voltaren Arthritis Pain] 1 % gel 2 g topical QID Qty: 100 0RF Rx Instructions: apply to area of concern (DME) condoms - male Misc See Rx Instructions .Route Qty: 10 0RF Rx Instructions: As directed levothyroxine 100 mcg capsule 100 mcg PO QDAY Qty: 30 0RF Referrals: Silvia Orlando SALES RECEPTIONIST [Primary Care Provider] - In 1 week Problem List Clinical Impression: Abdominal pain, Chest pain of unknown etiology, Gastritis Patient/Caregiver Discharge Instructions Education Materials: Abdominal Pain, ED Chest Pain, Uncertain Cause, ED Gastritis (Adult) Additional Instructions: Follow-up with your primary care physician in 2 days for reevaluation and to be referred to peripatologist for further evaluation and treatment of chest pain for possible echocardiogram stress test and Holter monitor and need to be referred also with engineering manager for further evaluation and treatment of gastritis for possible EGD recurrence persistent worsening symptoms or any emergent concern call 911 or go to the nearest emergency room take your medication as directed increase water intake keep hydrated Pedialyte Gatorade for hydration avoid skipping of meals avoid fatty fried high cholesterol food avoid spicy food avoid alcohol soda or coffee Print Language: Bengali Stand Alone Forms: Martha Award Info., Patient Portal Info Letter PA/[employer] PRODUCTION MACHINE OPERATOR Supervising Physician PA/[employer]ODUCTION MACHINE OPERATOR Supervising Physician: Dr. Can
[2025-04-24] MEDS: LIDOCAINE VISCOUS 2% 15 ML UDC PO (22:18)
[2025-04-24] MEDS: MG HYD/AL HYD/SIME (Maalox Reg) SUSP 30 ML UDC PO (22:18)
[2025-04-24] MEDS: FAMOTIDINE 20 MG TABLET 40 MG PO (22:18)
[2025-04-24] MEDS: HYDROcodone/APAP 5/325 TABLET 1 TAB PO (22:19)
[2025-04-24] MEDS: ONDANSETRON ODT 4 MG TABRAP PO (22:19)
== END 2025-04-24 22:20 | disposition home or self-care (01) ==
PROVIDERS: Nurse Practitioner Family; Emergency Provider Emergency Medicine; PCP Nurse Practitioner Family
DX: K29.70 Gastritis, unspecified, without bleeding (principal); R51.9 Headache, unspecified; R07.89 Other chest pain; R94.31 Abnormal electrocardiogram [ECG] [EKG]
CPT/HCPCS: 36415; 71250; 74176; 80053; 81001; 81025; 83690; 84484; 85025; 93005; 99283; J3490; Q0162; A9270

== ENCOUNTER → 2025-05-15 | Outpatient (CLI) | payer MEDICAID, SELFPAY ==
--- NOTE | 2025-05-15 08:37 | XR_ITS ---
Examination: Lumbar spine, 5 views Technique: Lumbar spine AP, lateral, coned lateral lower lumbar spine, bilateral obliques 5 views Exam date and time: May 15, 2025, 0840 hours INDICATIONS: Lower back pain beginning one month ago. FINDINGS: Adequate alignment lumbar vertebral bodies No lumbar fracture The lateral film is oblique Minimal lumbar spondylosis No significant lumbar disc narrowing IMPRESSION: Minimal lumbar spondylosis No lumbar fracture
== END | disposition home or self-care (01) ==
LOC: CDIM 08:30
PROVIDERS: PCP Nurse Practitioner Family; Referring Provider Nurse Practitioner Family; Visit Provider Nurse Practitioner Family
DX: M47.816 Spondylosis without myelopathy or radiculopathy, lumbar region (principal)
CPT/HCPCS: 72110

== ENCOUNTER 2025-05-22 17:41 | Emergency (ER) | payer MEDICAID, SELFPAY ==
[2025-05-22 17:53] VITALS: BP 113/77; PULSE 91; RESP 18; TEMP 37.1; O2SAT 100; BMI 49.1
--- NOTE | 2025-05-22 17:56 | XR_ITS ---
Examination: CT abdomen and pelvis without contrast. Coronal 3-D reconstructions. Sagittal 2-D reconstructions. Date and time of exam:May 222019 hrs. Comparison: 04/24/2025 Indications: Generalized abdominal pain beginning 4 days ago CTDI: vol (mGy): 19 DLP: (mGycm): 1090 Technique: Axial images of the abdomen have been obtained, 3 mm slice thickness Intravenous contrast material has not been administered. Low dose protocols were performed. One or more of the following dose reduction techniques were used; automated exposure control, adjustment of the mA and/or KV according to patient size, use of iterative reconstruction technique. Findings: No visualized liver or splenic lesion Absent gallbladder No pancreatic or adrenal mass No renal or ureteral calculi, no hydronephrosis Aorta normal size No pericecal inflammatory change Urinary bladder intact No pelvic mass No bowel obstruction Osseous structures are intact Impression: No renal or ureteral calculi, no hydronephrosis No CT findings of appendicitis bowel obstruction or diverticulitis
[2025-05-22 18:19] LABS: Basophils # (Auto) 0.0 Thou/mm3 (0.0-0.2); Basophils % (Auto) 0 % (0-2.5); Eosinophils # (Auto) 0.3 Thou/mm3 (0.0-0.5); Eosinophils % (Auto) 2 % (0-10); Hematocrit 37.8 % (36.0-46.0); Hemoglobin 12.5 g/dL (12.0-16.0); Immature Granulocytes Auto 0.03 Thou/mm3 (0.00-0.00); Lymphocytes # (Auto) 2.7 Thou/mm3 (1.0-4.8); Lymphocytes % (Auto) 25 % (10-50); Mean Corpuscular HGB Conc 33.1 g/dl (31.0-37.0); Mean Corpuscular Hemoglobin 30.4 pg (25.0-35.0); Mean Corpuscular Volume 92 fL (80-100); Monocytes # (Auto) 0.7 Thou/mm3 (0.0-0.8); Monocytes % (Auto) 7 % (0-12); Neutrophils # (Auto) 7.2 Thou/mm3 (1.8-7.7); Neutrophils % (Auto) 66 % (37-80); Nucleated Red Blood Cell # 0.00 Thou/mm3 (0.00-0.00); Nucleated Red Blood Cell % 0 /100 WBC (0); Platelet Count 259 Thou/mm3 (140-440); RDW Standard Deviation 40.8 fL (36.4-46.3); Red Blood Count 4.11 Miln/mm3 (4.00-5.20); White Blood Count 10.9 Thou/mm3 (3.6-11.0)
[2025-05-22 18:33] LABS: Alanine Aminotransferase 44 U/L (10-49); Albumin, Serum 4.8 gm/dL (3.5-5.0); Albumin/Globulin Ratio 1.7 (1.2-2.2); Alkaline Phosphatase 76 U/L (46-116); Anion Gap 9 (7-16); Aspartate Amino Transferase 33 U/L (0-34); BUN/Creatinine Ratio 12 Ratio (12-20); Bilirubin,Total 1.2 mg/dL (0.3-1.2); Blood Urea Nitrogen 11 mg/dL (9-23); Calcium 9.5 mg/dL (8.3-10.6); Calcium (Corrected) 9.5 mg/dL (8.5-10.1); Carbon Dioxide 24.8 mMol/L (20.0-31.0); Chloride 108 mMol/L (98-107); Creatinine (Component) 0.9 mg/dL (0.6-1.3); Estimated Creatinine Clearance 100.1 mL/min (>60); Globulin 2.8 gm/dL (2.3-3.5); Glucose 88 mg/dL (74-106); Lipase 28 U/L (12-53); Osmolality,Calculated 281 (275-295); Potassium 4.2 mMol/L (3.4-5.1); Sodium 142 mMol/L (136-145); Total Protein 7.6 gm/dL (5.7-8.2); eGFR > 60 See Note
[2025-05-22 19:42] LABS: Collection Type, Urine Clean Catch
[2025-05-22 19:52] LABS: HCG Qualitative,Urine Negative
[2025-05-22 20:00] LABS: Bilirubin,Urine Negative (Negative); Blood,Urine Negative (Negative); Clarity,Urine Clear (Clear/Hazy); Color,Urine Yellow (Lt Yel-Yel); Glucose, Urine Negative (Negative); Ketones,Urine Negative (Negative); Leukocyte Esterase,Urine Negative (Negative); Nitrite,Urine Negative (Negative); PH,Urine 6.0 (5.0-7.0); Protein,Urine 1+ (Neg - Trace); RBC,Urine 4 /hpf (0-3); Specific Gravity,Urine 1.038 (1.001-1.035); Squamous Epithelial Cell,Urine 19 /hpf (0-5); Urobilinogen,Urine 2.0 mg/dL (0.0-1.0); WBC,Urine 2 /hpf (0-5)
--- NOTE | 2025-05-22 21:20 | EDNOTE_ITS ---
ED Abdominal Pain RME/HPI General Chief Complaint: Abdominal Pain Stated complaint: ABD PAIN X 4 DAYS Time seen by provider: 05/22/25 17:55 Arrival date/time: 05/22/25 17:41 This is a case of 30-year-old female with history of cholecystectomy came in in the emergency room due to abdominal pain mostly on the epigastric area burning in character associated with nausea vomiting on and off for 4 days due to persistence of the symptoms this patient decided to sought consult here in the emergency room Limitations: no limitations Related Data Previous Rx's ?Medication ?Instructions ?Recorded condoms - male #10 ea 10/17/24 meloxicam 15 mg tablet 15 mg PO QDAY #30 tabs 11/08 levothyroxine 100 mcg capsule 100 mcg PO QDAY #30 caps 11/22/24 diclofenac sodium 1 % topical gel 2 g topical QID #100 grams 02/01/25 (Voltaren Arthritis Pain) famotidine 20 mg tablet 20 mg PO BID #60 tabs omeprazole 20 mg capsule,delayed 20 mg PO QDAY #30 cap s 04/24/25 release ondansetron 4 mg disintegrating 4 mg PO Q8H PRN nausea and 04/24/25 tablet vomiting #14 tabs famotidine 20 mg tablet 20 mg PO BID #60 tabs omeprazole 20 mg capsule,delayed 20 mg PO QDAY #30 cap s 05/22/25 release ondansetron 4 mg disintegrating 4 mg PO Q8H #20 tabs 1 tablet Allergies Allergy/AdvReac Type Severity Reaction Status Date / Time No Known Allergies Allergy Verified 05/22/25 17:43 Review of Systems Review of Systems Systems Reviewed: All systems reviewed, normal except as documented Constitutional Constitutional: Reports system reviewed and no additional complaints, except as documented and Reports as per HPI ENT Ears, Nose, Mouth, and Throat: Denies dysphagia and Denies odynophagia Cardiovascular Cardiovascular: Reports system reviewed and no additional complaints, except as documented and Reports as per HPI Respiratory Respiratory: Reports system reviewed and no additional complaints, except as documented and Reports as per HPI Gastrointestinal Gastrointestinal: Reports system reviewed and no additional complaints, except as documented, Reports as per HPI, Reports abdominal pain, Denies belching, Denies bloating, Denies change in bowel habits, Denies change in stool character, Denies coffee ground emesis, Denies constipation, Denies cramping, Denies diarrhea, Denies dyspepsia, Denies dysphagia, Denies early satiety, Denies excessive flatus, Denies fecal incontinence, Denies heartburn, Denies hematemesis, Denies hematochezia, Denies loose stools, Denies melena, Reports nausea, Denies odynophagia, Denies tenesmus and Reports vomiting Genitourinary Genitourinary: Reports system reviewed and no additional complaints, except as documented and Reports as per HPI Neurologic Neurologic: Reports system reviewed and no additional complaints, except as documented and Reports as per HPI Past Medical History Past Medical History NEUROLOGIC: Negative Neurological Disorders or Seizures CARDIAC: Negative Cardiac Disorders or Congestive Heart Failure RESPIRATORY: Negative Chronic Obstructive Pulmonary Disease (COPD) GASTROINTESTINAL: Positive Gastrointestinal Disorders and Obesity GENITOURINARY: Negative Genitourinary Disorders or Renal Disease MUSCULOSKELETAL: Negative Musculoskeletal Disorders ENDOCRINE: Positive Endocrine Disorders and Hypoglycemia; Negative Diabetes Mellitus Type 1 or Diabetes Mellitus Type 2 HEMATOLOGIC: Positive Blood Disorders and Anemia OTHER HISTORY: Negative Autoimmune Disease, Blood Transfusions, Blood Rayo sfusion Reaction or Anesthesia Reactions Family History FAMILY HISTORY: Positive Family Cardiac Disorders (GRANDMOTHER HTN); Negative Family Psychiatric Problems, Family Respiratory Disorders, Family Gastrointestinal Problems, Family Cancer, Family Surgery or Family Anesthesia Reaction Surgical History SURGICAL: Positive Section Social History SMOKING STATUS: Never smoker SECOND HAND EXPOSURE: No ED Exam General Limitations: Present no limitations General appearance: Present alert, in no apparent distress and other (Patient is awake alert oriented not in distress nontoxic looking well-hydrated well-nourished) Head Head exam: Present atraumatic, normocephalic and normal inspection Eye Eye exam: Present normal appearance, PERRL and EOMI ENT ENT exam: Present normal exam, normal oropharynx and mucous membranes moist Neck Neck exam: Present normal inspection, full ROM and trachea midline; Absent tenderness, meningismus, lymphadenopathy or thyromegaly Chest Chest inspection: Present normal inspection and symmetric chest wall rise; Absent tenderness Respiratory Respiratory exam: Present normal lung sounds bilaterally; Absent respiratory distress, wheezes, stridor, accessory muscle use or prolonged expiratory phase Cardiovascular Cardiovascular exam: Present regular rate, normal rhythm and normal heart sounds; Absent bradycardia, tachycardia, irregular rhythm, systolic murmur or diastolic murmur Abdominal Exam Abdominal exam: Present soft, tenderness (Tenderness epigastric area no CVA tenderness) and normal bowel sounds; Absent distention, guarding, rebound, rigidity, diminished bowel sounds, hyperactive bowel sounds, hypoactive bowel sounds, organomegaly, psoas sign, obturator sign, heel tap sign, Luevano's sign, Rovsing's sign, tenderness at McBurney's Point, ascites or hernia Extremities Exam Extremities exam: Present normal inspection and full ROM Back Exam Back exam: Present normal inspection and full ROM Neurological Exam Neurological exam: Present alert, oriented X3, CN II-XII intact, normal gait and reflexes normal; Absent motor sensory deficit Psychiatric Psychiatric exam: Present normal affect and normal mood Skin Skin exam: Present warm, dry, intact and normal color Course Quality Measures none Orders Category Date Time Status CT abdomen pelvis wo con Stat Exams 05/22/25 17:56 Completed CBC Stat Lab 05/22/25 18:07 Completed Comprehensive Metabolic Panel Stat Lab 05/22/25 18:07 Completed HCG Qualitative,Urine Stat Lab 05/22/25 19:11 Completed Lipase Stat Lab 05/22/25 18:07 Completed Urinalysis Stat Lab 05/22/25 19:11 Completed Famotidine [Pepcid] Med 05/22/25 21:15 Discontinued 40 mg PO X1 ONE HYDROcodone*/APAP 5/325 [Mitchells 5/325] Med 05/22/25 21:14 Discontinued 1 tab PO X1 ONE Lidocaine 2% Viscous [Xylocaine 2% Viscous] Med 05/22/25 21:15 Discontinued 15 ml PO X1 ONE Ondansetron Odt [Zofran Odt] Med 05/22/25 21:14 Discontinued 4 mg PO X1 ONE mg Hyd/Al Hyd/Caprice Susp [Maalox Susp] Med 05/22/25 21:14 Discontinued 30 ml PO X1 ONE Vital Signs Vital signs: Vital Signs Temperature 98.8 F 05/22/25 17:53 Pulse Rate 91 05/22/25 17:53 Respiratory Rate 18 05/22/25 17:53 Blood Pressure 113/77 05/22/25 17:53 Pulse Oximetry (%) 100 05/22/25 17:53 Oxygen Delivery Method Room Air 05/22/25 17:53 Oxygen saturation is 100% in room air Abdominal Pain MDM MDM Narrative MDM Narrative:: This is a case of 30-year-old female with history of cholecystectomy came in in the emergency room due to abdominal pain mostly on the epigastric area burning in character associated with nausea vomiting on and off for 4 days due to pers istence of the symptoms this patient decided to sought consult here in the emergency room physical examination patient is awake alert oriented not in distress nontoxic looking well-hydrated well-nourished excellent skin turgor no signs and symptoms of sepsis dehydration or acute abdomen abdominal exam is benign nonsurgical no guarding no rebound no rigidity mild tenderness in the epigastric area negative psoas negative straight or negative Rovsing's negative [place]'s negative IV sign negative CVA tenderness blood test showed no leukocytosis no anemia kidney and liver function is normal no electrolyte imbalance lipase is normal urinalysis is normal patient CT scan is unremarkable is and normal based on my physical examination and history patient symptoms suggestive of gastritis patient was given Mitchells Zofran and GI cocktail patient condition markedly improved abdominal exam is benign nonsurgical no guarding no rebound no rigidity abdominal pain was resolved no recurrence of vomiting pat ient was advised to follow-up with PCP in 2 days for reevaluation and to be referred to [facility] for gastritis for possible EGD for any recurrence persistent worsening symptoms or any emergent concern return precaution in the emergency room immediately or call 911 patient was prescribed with Pepcid omeprazole and Zofran modified diet is advised Patient was discharged with comfortable condition walking with stable gait. Patient verbalized no further complains explained diagnosis and answered patient question. Patient is comfortable with the proposed management plan including the need to follow up with his/her primary care physician and any specialist if applicable Discussed patient for any urgent condition or worsening sx, He/She needed to go to emergency room immediately or call 911. Patient acknowledge the responsibility to follow up as instructed and to monitor her/his symptoms. For any persistence of the symptoms for more than 3-5 days return precaution advised. Discussed the result of the test and was given printed discharge instruction Patient data External records reviewed:: [facility] previous records Clinical information provided by:: patient Social determinants that could affect healthcare access:: none Patient has the following chronic illnesses:: None How is presenting disease/condition affected by chronic disease/condition?: no chronic disease Evaluation data The following diagnostics were reviewed and interpreted by me:: lab results and radiology exam(s) Lab and/or radiology exams considered but not ordered:: Reviewed Interpretation Summary: Reviewed Medications / Prescriptions Medications or Prescriptions considered but not ordered:: Given Medication administrations:: Medication Administration History Discontinued Medications Hydrocodone Bitart/Acetaminophen (Hydrocodone/Apap 5/325 Tablet) 1 tab PO X1 ONE Stop: 05/22/25 21:15 Al Hydrox/Mg Hydrox/Simethicone (Mg Hyd/Al Hyd/Caprice (Maalox Reg) Susp 30 Ml Udc) 30 ml PO X1 ONE Stop: 05/22/25 21:15 Famotidine (Famotidine 20 Mg Tablet) 40 mg PO X1 ONE Stop: 05/22/25 21:16 Lidocaine HCl (Lidocaine Viscous 2% 15 Ml Udc) 15 ml PO X1 ONE Stop: 05/22/25 21:16 Ondansetron HCl (Ondansetron Odt 4 Mg Tabrap) 4 mg PO X1 ONE; Protocol Stop: 05/22/25 21:15 Given Consultations Consultation(s) initiated? (list below): No Diagnosis Differential diagnosis abdominal pain: abdominal pain, acute appendicitis, calculus of kidney, constipation, diverticulitis, gastroenteritis, pancreatitis and small bowel obstruction Most likely diagnosis given after review of the tests above:: Gastritis Admission Indicated Admission indicated?: not indicated Explain why admission is indicated or not indicated:: Not indicated Admission Request Was there a request for admission?: No Admission Attestation Admission request attestation: Not indicated Disposition Plan Disposition Plan: Discharge Discharge Attestation Discharge Attestation: The patient and all family members were given an opportunity to ask questions and understood the discharge instructions. Discharge instructions specifically effects, indications for sooner follow up or return to the emergency department, and the expected course of current diagnosis. Patient condition: Stable Discharge Plan Plan Patient Disposition: HOME (Self Care) Patient condition on transfer: Stable Prescriptions/Referrals Prescriptions/Med Rec: New famotidine 20 mg tablet 20 mg PO BID Qty: 60 0RF omeprazole 20 mg capsule,delayed release(DR/EC) 20 mg PO QDAY Qty: 30 0RF ondansetron 4 mg tablet,disintegrating 4 mg PO Q8H Qty: 20 0RF No Action meloxicam 15 mg tablet 15 mg PO QDAY Qty: 30 0RF diclofenac sodium [Voltaren Arthritis Pain] 1 % gel 2 g topical QID Qty: 100 0RF Rx Instructions: apply to area of concern (DME) condoms - male Misc See Rx Instructions .Route Qty: 10 0RF Rx Instructions: As directed levothyroxine 100 mcg capsule 100 mcg PO QDAY Qty: 30 0RF famotidine 20 mg tablet 20 mg PO BID Qty: 60 0RF omeprazole 20 mg capsule,delayed release(DR/EC) 20 mg PO QDAY Qty: 30 0RF ondansetron 4 mg tablet,disintegrating 4 mg PO Q8H PRN (Reason: nausea and vomiting) Qty: 14 0RF Referrals: Eloisa Mckenna MD [Physician, Gastroenterology] - 05/23/25 Referral Note: For further evaluation and treatment of gastritis for possible EGD Silvia Orlando NP [Primary Care Provider] - In 1 week Problem List Clinical Impression: Abdominal pain, Gastritis Patient/Caregiver Discharge Instructions Education Materials: Abdominal Pain, ED Gastritis (Adult) Additional Instructions: Follow-up with your primary care physician in 2 days for reevaluation and to be referred to [facility] for further evaluation and treatment of gastritis for any recurrent persistent worsening symptoms or any emergent concern call 911 or go to the nearest emergency room it is very important to see [facility] for gastritis and well and possible EGD take your medication as directed keep hydrated Pedialyte Gatorade for hydration avoid skipping of meals avoid fatty fried high cholesterol food avoid spicy food avoid soda coffee or alcohol Print Language: Greenlandic Stand Alone Forms: Martha Award Info., Patient Portal Info Letter PA/INDIVIDUAL PENSION CONSULTANT Supervising Physician PA/INDIVIDUAL PENSION CONSULTANT Supervising Physician: Dr. Paredes
[2025-05-22] MEDS: ONDANSETRON ODT 4 MG TABRAP PO (21:21)
[2025-05-22] MEDS: FAMOTIDINE 20 MG TABLET 40 MG PO (21:22)
[2025-05-22] MEDS: MG HYD/AL HYD/SIME (Maalox Reg) SUSP 30 ML UDC PO (21:22)
== END 2025-05-22 21:24 | disposition home or self-care (01) ==
PROVIDERS: Nurse Practitioner Family; Emergency Provider Emergency Medicine; PCP Nurse Practitioner Family
DX: K29.70 Gastritis, unspecified, without bleeding (principal)
CPT/HCPCS: 36415; 74176; 80053; 81001; 81025; 83690; 85025; 85046; 99284; Q0162; A9270